=== PATIENT | male | born 1975 | race Hispanic/Latino ===

== ENCOUNTER 2022-04-07 18:14 | Emergency (ER) | payer SELFPAY ==
[~2022-04-07] VITALS: Ht 157.5 cm; Wt 65.8 kg
[2022-04-07] MEDS ORDERED: TETANUS/DIPHTHERIA TOX ADULT 0.5 ML SYR IM ONE (18:30)
[2022-04-07] MEDS ORDERED: [UNRECOGNIZED DRUG - OTHER] IV ONE (18:30)
[2022-04-07 18:53] LABS: BASOPHILS % 0.5 % (0.0-1.0); EOSINOPHILS # (AUTO) 0.2 (0.0-0.4); EOSINOPHILS % 2.5 % (0.0-6.0); HEMATOCRIT 49.1 % (38.2-49.6); HEMOGLOBIN 16.7 g/dL (14.0-18.0); LYMPHOCYTES # (AUTO) 2.9 (1.0-3.2); LYMPHOCYTES % 38.5 % (18.0-39.1); MEAN CORPUSCULAR HEMOGLOBIN 32.6 pg (28-32); MEAN CORPUSCULAR VOLUME 95.7 fL (81-99); MONOCYTES # (AUTO) 0.5 (0.2-0.8); NEUTROPHILS % 52.4 % (38.7-80.0); PLATELET COUNT 228 x10e3/uL (140-360); RED BLOOD COUNT 5.13 x10e6/uL (4.3-5.7); RED CELL DISTRIBUTION WIDTH 11.7 % (11.7-14.4)
[2022-04-07 18:59] LABS: INR 0.94; PROTHROMBIN TIME 13.4 seconds (11.9-14.5)
[2022-04-07 19:00] LABS: PARTIAL THROMBOPLASTIN TIME 30.3 seconds (23.8-35.5)
[2022-04-07] MEDS ORDERED: FENTANYL CITRATE/PF 100MCG/2 ML INJ IV PRN (19:00)
[2022-04-07 19:19] LABS: ALBUMIN 5.3 g/dL (3.5-5.0); ALBUMIN/GLOBULIN RATIO 1.4 (0.8-2.0); ANION GAP 16.7 mmol/L (8-16); CALCIUM 10.1 mg/dL (8.4-10.2); CREATININE, SERUM 0.94 mg/dL (0.72-1.25); POTASSIUM 3.7 mmol/L (3.5-5.1)
[2022-04-15] MEDS ORDERED: [UNRECOGNIZED DRUG - OTHER] IV ONE (10:45)
== END 2022-04-07 19:14 | disposition other institution (70) ==
LOC: ER 18:25
DX: T63.011A Toxic effect of rattlesnake venom, accidental (unintentional), initial encounter (principal); Y92.830 Public park as the place of occurrence of the external cause; Z23 Encounter for immunization
CPT/HCPCS: 36415; 80053; 85025; 85384; 85610; 85730; 90714; 99284